=== PATIENT | female | born 1975 | race Caucasian/White ===

== ENCOUNTER 2017-09-14 08:33 | Outpatient (CLI) | payer OTHER | END 2017-09-14 08:34 | disposition home or self-care (01) | LOC: BICMRI 08:33 | PROVIDERS: ATTEND Surgery | DX: C50.919 Malignant neoplasm of unspecified site of unspecified female breast (principal) | CPT/HCPCS: C8908 ==

== ENCOUNTER 2017-09-27 13:25 | Outpatient (CLI) | payer OTHER ==
[2017-09-27 13:59] LABS: #Basophils 0.1 thou/uL (0.0-0.2); #Eosinphils 0.1 thou/uL (0.0-0.7); #Lymphocytes 2.9 thou/uL (1.20-3.40); #Monocytes 0.4 thou/uL (0.11-0.59); #Neutrophils 3.9 thou/uL (1.40-6.50); %Basophils 1.2 % (0.0-1.0); %Eosinophils 1.5 % (0.0-10.0); %Lymphocytes 38.9 % (21.0-51.0); %Neutrophils 53.4 % (42.0-75.0); Hemoglobin 14.7 g/dL (12.0-16.0); Mean Corpuscular HGB CONC 34.7 g/dL (32.0-36.0); Mean Corpuscular Hemoglobin 32.7 pg (27.0-31.0); Mean Corpuscular Volume 94.3 fL (78.0-98.0); Mean Platelet Volume 5.9 fL (7.4-10.4); Platelet Count 311 thou/uL (130-400); RBC Distribution Width 12.5 % (11.5-14.5); Red Blood Cell (RBC) Count 4.51 mill/uL (4.20-5.40); White Blood Cell (WBC) Count 7.3 thou/uL (4.8-10.8)
[2017-09-27 14:23] LABS: BHCG - Serum Negative (NEGATIVE); Pregs Control Background? CLEAR/WHITE (CLR/WHITE); Pregs Control Bar Appear? YES (CONTROL BAR)
[2017-09-27 14:32] LABS: Anion Gap 18 mmol/L (10-20); Calcium 9.7 mg/dL (7.8-10.44); Carbon Dioxide 17 mmol/L (22-29); Chloride 105 mmol/L (98-107); Potassium 4.5 mmol/L (3.5-5.1); Sodium 135 mmol/L (136-145)
[2017-09-27 14:41] LABS: BUN (Urea Nitrogen) 11 mg/dL (7.0-18.7); Calc. Creatinine Clearance 0 mL/min (70-130); Estimated GFR-MDRD 85; Glucose 84 mg/dL (70-105)
== END 2017-09-27 13:26 | disposition home or self-care (01) ==
LOC: LABBT 13:25
PROVIDERS: ATTEND Surgery
DX: Z01.812 Encounter for preprocedural laboratory examination (principal); C50.919 Malignant neoplasm of unspecified site of unspecified female breast
CPT/HCPCS: 80048; 84703; 85025

== ENCOUNTER 2017-09-28 07:49 | Day surgery (SDC) | payer OTHER ==
[2017-09-27 13:56] VITALS: BMI 25.7
[2017-09-28] MEDS ORDERED: Fentanyl 100 MCG/2 ML VIAL ONE ×2 (11:20→11:27)
[2017-09-28] MEDS ORDERED: Midazolam HCl 2 mg/2 ml Vial ONE ×2 (11:20→11:41)
--- NOTE | 2017-09-28 11:36 | NM ---
NUCLEAR MEDICINE LYMPHOSCINTIGRAPHY: Date: 09/28/17 HISTORY: Malignant neoplasm of unspecified site of female breast. COMPARISON: None. FINDINGS: The left breast was injected with a total of 0.415 mCi technetium-99m sulfur colloid in four differen t aliquots around the areola. There is uptake in the left axilla. IMPRESSION: Left axillary lymph node uptake. POS: NICOLE
[2017-09-28] MEDS ORDERED: Isosulfan Blue 50 MG/5 ML VIAL ONE (11:41)
[2017-09-28] MEDS ORDERED: Bupivacaine/Epinephrine 0.25% 30 ML VIAL ONE ×2 (11:41→13:28)
[2017-09-28] MEDS ORDERED: CEFAZOLIN/Water 2 GM/20 ML SYRINGE ONE (11:49)
[2017-09-28] MEDS ORDERED: PROPOFOL 200 MG/20 ML VIAL ONE (13:55)
[2017-09-28] MEDS ORDERED: Ondansetron HCl/PF 4 MG/2 ML Vial ONE (13:55)
[2017-09-28] MEDS ORDERED: Ketorolac Tromethamine 30 MG/ML VIAL ONE (13:55)
[2017-09-28] MEDS ORDERED: Dexamethasone 20 MG/5 ML VIAL ONE (13:55)
[2017-09-28] MEDS ORDERED: Lidocaine 1% PF 5 ML VIAL ONE (13:55)
--- NOTE | 2017-09-28 14:12 | MMO ---
MAMMOGRAM SPECIMEN: Date: 09/28/17 HISTORY: Lumpectomy. COMPARISON: Needle localization. FINDINGS: Specimen contains needle, clip, and mass. IMPRESSION: Specimen contains needle, clip, and mass. POS: LANETTE
--- NOTE | 2017-09-29 18:40 | PDOC.OP ---
Operative Note - Operative Note Operative Note: PROCEDURE: Left breast needle localized lumpectomy and sentinel lymph node biopsy DATE OF PROCEDURE: 09/28/2017 SURGEON: Gurinder Parham M.D. PREOPERATIVE DIAGNOSES: Left lobular breast cancer POSTOPERATIVE DIAGNOSIS: Left lobular breast cancer HISTORY: Patient is diagnosed with breast cancer. She has decided to undergo breast conservation therapy. [place] lymph node biopsy was recommended for staging. PROCEDURE IN DETAIL: The patient underwent lymphoscintigraphy and needle localization of the leftbreast mass in radiology prior to being taken to the operating room. She was then taken to the operating room and placed in supine position and anesthesia was administered. Appropriate preoperative antibiotics were administered and lymphazurin was injected behind the areola and the breast was massaged for several minutes taking care not to displace or disturb the needle localization wire. She was then prepped and draped in the standard sterile fashion and local anesthesia infused the skin and subcutaneous tissues of the axilla. An incision was made over the lower edge of the hair-bearing skin of the axilla and dissection carried down to the area of highest activity. Some blue lymphatics were seen feeding a small lymph node in this area which is morphologically normal. The lymphatics were clipped and the lymph node resected. A target count of 83 was obtained and the specimen was sent as sentinel lymph node #1. A thorough search of the axilla was undertaken and no other lymph nodes with elevated counts were encountered, nor were any palpable lymph nodes felt on examination. The axillary wound was irrigated and examined for hemostasis which was excellent. Additional local anesthesia was infused circumferentially for postoperative pain management and the subcutaneous tissues were closed with 3-0 Monocryl suture and the skin closed with 4-0 subcuticular Monocryl suture. Attention was then turned to the needle localized lumpectomy. Local anesthesia was infused the skin and subcutaneous tissues at the needle localization site. An incision was made and flaps raised through the subcutaneous tissues. The breast tissue surrounding the needle was then excised maintaining a distance of about 2-3 cm from the localization needle in all directions, with a slightly wider margin anteriorly based on the location of the needle on preoperative mammography . Dissection was carried out to the end of the wire and the specimen removed and oriented for pathology with a long lateral, short superior , and looped superficial/nterior suture. This was sent for a specimen mammogram which revealed that the mass, clip, and calcifications were in the specimen. The wound was irrigated and hemostasis obtained with Bovie electrocautery. Additional local anesthesia was infused for postoperative pain management and the subcutaneous tissues were reapproximated with 3-0 Monocryl sutures. Additional local anesthesia was infused into the biopsy cavity and the skin was closed with 4-0 subcuticular Monocryl sutures. Dermabond was placed to both incisions. Estimated blood loss minimal. There were no complications. SPECIMENS: Left sentinel lymph node and left breast mass.
== END 2017-09-28 16:10 | disposition home or self-care (01) ==
LOC: SDC 07:49
PROVIDERS: ATTEND Surgery
PROC: 0HBU0ZX Excision of Left Breast, Open Approach, Diagnostic (ICD-10-PCS; principal; 2017-09-28)
DX: C50.912 Malignant neoplasm of unspecified site of left female breast (principal); Z79.899 Other long term (current) drug therapy
CPT/HCPCS: 19281; 76098; 78195; 88307; 88331; 88334; 88342; A9541; J1100; J1885; J2001; J2250; J2405; J2704; J3010; Q9968

== ENCOUNTER 2018-07-03 09:12 | Outpatient (CLI) | payer OTHER ==
--- NOTE | 2018-07-03 10:00 | MMO ---
Bilateral MAMMO Bilat Diag [facility]. CLINICAL HISTORY: Patient is 43 years old and is seen for diagnostic exam. The patient has the following family history of breast cancer: maternal grandmother and paternal grandmother. The patient has a history of malignant (generic) in the left breast in July,. The patient has a history of left Stereotatic Biopsy in July, - malignant and left Lumpectomy in 2018 - malignant. VIEWS: The views performed were: bilateral craniocaudal with tomosynthesis; bilateral mediolateral oblique with tomosynthesis; and bilateral mediolateral. FILMS COMPARED: The present examination has been compared to prior imaging studies performed at MAMMOGRAM FINDINGS: There are scattered fibroglandular densities. There are new post operative changes seen in the left breast. There are no suspicious masses, suspicious calcifications, or new areas of architectural distortion. IMPRESSION: THERE IS NO MAMMOGRAPHIC EVIDENCE OF MALIGNANCY. A ROUTINE FOLLOW-UP MAMMOGRAM IN 1 YEAR IS RECOMMENDED. THE RESULTS OF THIS EXAM WERE SENT TO THE PATIENT. ACR BI-RADS Category 2 - Benign finding MAMMOGRAPHY NOTE: 1. A negative mammogram report should not delay a biopsy if a dominant of clinically suspicious mass is present. 2. Approximately 10% to 15% of breast cancers are not detected by mammography. 3. Adenosis and dense breasts may obscure an underlying neoplasm.
== END 2018-07-03 09:13 | disposition home or self-care (01) ==
LOC: BICMAMMO 09:12
PROVIDERS: ATTEND Surgery
DX: C50.919 Malignant neoplasm of unspecified site of unspecified female breast (principal)
CPT/HCPCS: 77066; G0279

== ENCOUNTER 2018-11-08 15:49 | Outpatient (CLI) | payer OTHER ==
--- NOTE | 2018-11-09 08:03 | MRI ---
MRI Upper Ext Jt Rt WO Con History: Right hand weakness. R 29.898 Comparison: Hand radiograph October 31, 2018 Findings: Tendons: There is abnormal increased fluid surrounding the extensor digiti minimi and exten sor tendons of the small finger. Partial tear of the extensor expansion at the small finger metacarpal phalangeal joint as well as the medial sagittal band. The flexor digitorum superficialis of the small finger is very thin and attenuated at the level of th e metacarpal base extending into the proximal phalanx without definite normal distal insertion. Flexor digitorum profundus is intact. High-grade edema surrounding the flexor tendon sheath throughou t the small finger. No annular nadiya tear is appreciated There is a partial tear of the fourth dorsal interosseous muscle and third palmar interosseous muscle . The wrist is intact. Partial tear of the abductor digiti minimi myotendinous junction at its insertio n. Impression: 1. Split tear of the small finger extensor expansion at the metacarpal phalangeal joint with medial s agittal band tear subtle lateral subluxation of the extensor tendon. 2. High-grade tear small finger flexor digitorum superficialis from the wrist to the insertion which may be torn and retracted. This evaluation is limited due to the large field of view images. 3. Partial tear of the abductor digit minimi myotendinous junction. 4. Partial tears of the fourth dorsal interosseous muscle and third palmar interosseous muscle. 5. Full-thickness tear medial collateral ligament small finger metacarpal phalangeal joint.
== END 2018-11-08 15:50 | disposition home or self-care (01) ==
LOC: SCSMRI 15:49
PROVIDERS: ATTEND Pediatrics Sports Medicine
DX: M79.641 Pain in right hand (principal); R29.898 Other symptoms and signs involving the musculoskeletal system; M24.9 Joint derangement, unspecified; M25.641 Stiffness of right hand, not elsewhere classified; S66.311A Strain of extensor muscle, fascia and tendon of left index finger at wrist and hand level, initial encounter

== ENCOUNTER 2018-11-27 12:42 | Outpatient (CLI) | payer OTHER ==
[2018-11-27 13:53] LABS: #Lymphocytes 1.9 thou/uL (1.20-3.40); #Monocytes 0.2 thou/uL (0.11-0.59); #Neutrophils 3.2 thou/uL (1.40-6.50); %Basophils 0.8 % (0.0-1.0); %Eosinophils 0.8 % (0.0-10.0); %Lymphocytes 35.5 % (21.0-51.0); %Monocytes 4.4 % (0.0-10.0); %Neutrophils 58.5 % (42.0-75.0); Hemoglobin 12.4 g/dL (12.0-16.0); Mean Corpuscular HGB CONC 33.5 g/dL (32.0-36.0); Mean Corpuscular Hemoglobin 31.8 pg (27.0-31.0); Mean Corpuscular Volume 94.8 fL (78.0-98.0); Mean Platelet Volume 7.2 fL (7.4-10.4); Platelet Count 274 thou/uL (130-400); RBC Distribution Width 11.6 % (11.5-14.5); Red Blood Cell (RBC) Count 3.88 mill/uL (4.20-5.40); White Blood Cell (WBC) Count 5.4 thou/uL (4.8-10.8)
[2018-11-27 14:17] LABS: BHCG - Serum Negative (NEGATIVE); Pregs Control Background? CLEAR/WHITE (CLR/WHITE); Pregs Control Bar Appear? YES (CONTROL BAR)
== END 2018-11-27 12:43 | disposition home or self-care (01) ==
LOC: LABBT 12:42
PROVIDERS: ATTEND Orthopaedic Surgery Hand Surgery
DX: Z01.812 Encounter for preprocedural laboratory examination (principal); S56.417A Strain of extensor muscle, fascia and tendon of right little finger at forearm level, initial encounter
CPT/HCPCS: 84703; 85025

== ENCOUNTER 2018-12-01 08:01 | Day surgery (SDC) | payer OTHER ==
[2018-11-27 12:27] VITALS: BMI 25.0
[2018-12-01] MEDS ORDERED: Fentanyl 100 MCG/2 ML VIAL ONE ×2 (08:33→11:07)
[2018-12-01] MEDS ORDERED: Midazolam HCl 2 mg/2 ml Vial ONE (08:33)
[2018-12-01] MEDS ORDERED: Bupivacaine HCl 0.5%/Epinephrine 1:200,000/PF 30 ml Vial ONE (10:49)
[2018-12-01] MEDS ORDERED: Bupivacaine PF 0.5% 30 ML VIAL ONE (11:05)
[2018-12-01] MEDS ORDERED: Sodium Chloride 0.9% 10 ML ONE (11:06)
[2018-12-01] MEDS ORDERED: Bacitracin Zinc Ointment 30 gm TUBE ONE (11:08)
[2018-12-01] MEDS ORDERED: Betamet Acet/Betamet Na Ph 30 MG/5 ML VIAL ONE (11:08)
[2018-12-01] MEDS ORDERED: Ondansetron PF 4 MG/2 ML Vial ONE (11:12)
[2018-12-01] MEDS ORDERED: Metoclopramide HCl 10 MG/2 ML VIAL ONE (11:12)
[2018-12-01] MEDS ORDERED: PROPOFOL 200 MG/20 ML VIAL ONE (11:12)
[2018-12-01] MEDS ORDERED: Dexamethasone 20 MG/5 ML VIAL ONE (11:12)
[2018-12-01] MEDS ORDERED: Lidocaine 1% PF 5 ML VIAL ONE (11:12)
[2018-12-01] MEDS ORDERED: ePHEDrine 50 MG/ML VIAL ONE (11:12)
[2018-12-01] MEDS ORDERED: Ketorolac Tromethamine 30 MG/ML VIAL ONE (13:14)
--- NOTE | 2018-12-04 12:01 | OP ---
DATE OF PROCEDURE: 12/01/2018 PREOPERATIVE DIAGNOSES: 1. Right small finger extensor tendon subluxation of MP joint with possible collateral ligament tear. 2. Right ring finger metacarpophalangeal joint contracture. FINDINGS: 1. Right ring finger metacarpophlangeal contracture with intrinsic tightness. 2. Right small finger dorsal capsular tightness, poor flexion, extensor tendon subluxation ulnarly with partial rupture of the retinaculum and over 60% tear at the base of P1, radial side, medial collateral ligament rupture. PROCEDURE PERFORMED: 1. Right ring finger: a. Metacarpophalangeal joint arthrotomy. b. Metacarpophalangeal joint capsulotomy. c. Radial intrinsic release. d. Ulnar intrinsic release. 2. Right small finger: a. Capsulectomy with capsulotomy of metacarpophalangeal joint. b. Ulnar retinacular release. c. Radial retinaculum repair. d. Medial collateral ligament/radial collateral ligament reconstruction back to bone. e. Extensor tendon centralization. TOURNIQUET TIME: 43 minutes. ESTIMATED BLOOD LOSS: Less than 10 mL. FINDINGS: Tight dorsal capsule in both the joints and moderate subluxation of extensor tendons at the small finger MCP joint with 60% small finger metacarpophalangeal joint medial collateral/radial collateral ligament rupture of the base of P1 just under retinacular tear. DESCRIPTION OF PROCEDURE: After successful general endotracheal anesthesia, the limb was prepped and draped. A zigzag incision was made slightly radial to the small finger to be able to reach the ring finger capsule as well. We then noticed even with a block and anesthesia that could not passively flex the MP joints beyond 50 degrees. Therefore capsule was very tight. ring finger, so we elevated the retinaculum, but spared on the ring finger, made a complete arthrotomy from one collateral to the other, took out 1.5 mm area of capsule and then flexed the joint easily to 110 degrees with no spring back. We then noticed the retinaculum had a tear that was oblique, approximately 1 cm long that had not healed. We then noticed that the retinaculum was intact at the ring finger. It was, however, very tight intrinsic, so we performed a triangular shape 1 cm along at its base radial and ulnar intrinsic release. We then turned our attention to the small finger. It was here that we saw the radial retinacular tear almost 1 cm long oblique and then dissected through this as part of inspection, we saw the medial collateral ligament tear deep to this. There was still a very tight dorsal capsule. We elevated the retinaculum, performed an arthrotomy from the ulnar collateral ligament all the way to the radial collateral ligament, resected 1.5 mm of dorsal capsule and now easily could flex to 110 degrees small finger with no spring back. Doing this, there was mild subluxation ulnarly of the extensor mechanism, so we released all the extensor mechanism 50%, this allowed us enough laxity to then repair the retinaculum. Before we repaired the retinaculum, however, we turned attention to the collateral ligament on the radial side rupture, freshened up the bone underneath this, made a trough 2 mm deep x 7 mm long, placed the anchor in the superior portion of this, and then, a Mitek mini anchor, used this with deviation towards the defect to repair/reconstruct it back to bone well in this trough. It was stable and so we then repaired the retinaculum on the radial side using a [id number] alternating 4-0 Prolene sutures. They were interrupted. Now, we could flex both joint to 80 degrees, MP joint, PIP and neutral. We released the tourniquet and closed the incision with interrupted 4-0 nylon mattress pattern. Bulky dressing applied and the small finger, ring finger, long finger were splinted with position of intrinsic plus, the MP joints at 90, PIP joints at 10. The patient left the operating room without evidence of anesthetic or operative complication. Job ID: [id number]
== END 2018-12-01 14:55 | disposition home or self-care (01) ==
LOC: SDC 08:01 → EEVIPCON 13:15 → SDC 14:55
PROVIDERS: ATTEND Orthopaedic Surgery Hand Surgery
PROC: 0RNU0ZZ Release Right Metacarpophalangeal Joint, Open Approach (ICD-10-PCS; principal; 2018-12-01)
PROC: 0LU Tendons, Supplement (ICD-10-PCS; principal; 2018-12-01)
PROC: 3E0T3BZ Introduction of Anesthetic Agent into Peripheral Nerves and Plexi, Percutaneous Approach (ICD-10-PCS; principal; 2018-12-01)
DX: S63.311A Traumatic rupture of collateral ligament of right wrist, initial encounter (principal); S63.091A Other subluxation of right wrist and hand, initial encounter; M24.541 Contracture, right hand; G89.18 Other acute postprocedural pain
CPT/HCPCS: C1713; J0670; J0690; J0702; J1100; J1885; J2001; J2250; J2405; J2704; J2765; J3010; J3490; S0020

== ENCOUNTER 2019-07-05 09:07 | Outpatient (CLI) | payer OTHER ==
--- NOTE | 2019-07-05 09:28 | MMO ---
Bilateral MAMMO Bilat Diag [facility]. CLINICAL HISTORY: Patient is 44 years old and is seen for diagnostic exam. The patient has the following family history of breast cancer: maternal grandmother and paternal grandmother. The patient has a history of malignant (generic) in the left breast in July,. The patient has a history of left Stereotatic Biopsy in July, - malignant and left Lumpectomy in 2018 - malignant. VIEWS: The views performed were: bilateral craniocaudal with tomosynthesis; bilateral mediolateral oblique with tomosynthesis; and bilateral mediolateral with tomosynthesis. FILMS COMPARED: The present examination has been compared to prior imaging studies performed at on 07/03/2018. This study has been interpreted with the assistance of computer-aided detection. MAMMOGRAM FINDINGS: There are scattered fibroglandular densities. There are stable post-operative changes in the left breast.. There are no suspicious masses, suspicious calcifications, or new areas of architectural distortion. IMPRESSION: THERE IS NO MAMMOGRAPHIC EVIDENCE OF MALIGNANCY. A ROUTINE FOLLOW-UP MAMMOGRAM IN 1 YEAR IS RECOMMENDED. THE RESULTS OF THIS EXAM WERE SENT TO THE PATIENT. ACR BI-RADS Category 2 - Benign finding MAMMOGRAPHY NOTE: 1. A negative mammogram report should not delay a biopsy if a dominant of clinically suspicious mass is present. 2. Approximately 10% to 15% of breast cancers are not detected by mammography. 3. Adenosis and dense breasts may obscure an underlying neoplasm. Reported by: OSMAR POWELL MD Electonically Signed: [id number]
== END 2019-07-05 09:08 | disposition home or self-care (01) ==
LOC: BICMAMMO 09:07
PROVIDERS: ATTEND Surgery
DX: Z08 Encounter for follow-up examination after completed treatment for malignant neoplasm (principal); Z85.3 Personal history of malignant neoplasm of breast
CPT/HCPCS: 77066; G0279

== ENCOUNTER 2020-06-30 09:21 | Outpatient (CLI) | payer BC | END 2020-06-30 09:22 | disposition home or self-care (01) | LOC: BICMAMMO 09:21 | PROVIDERS: ATTEND Surgery | DX: Z08 Encounter for follow-up examination after completed treatment for malignant neoplasm (principal); Z85.3 Personal history of malignant neoplasm of breast | CPT/HCPCS: 77066; G0279 ==

== ENCOUNTER 2021-07-15 09:14 | Outpatient (CLI) | payer BC | END 2021-07-15 09:15 | disposition home or self-care (01) | LOC: BICMAMMO 09:14 | PROVIDERS: ATTEND Surgery | DX: Z08 Encounter for follow-up examination after completed treatment for malignant neoplasm (principal); Z85.3 Personal history of malignant neoplasm of breast | CPT/HCPCS: 77066; G0279 ==

== ENCOUNTER 2022-11-05 08:48 | Outpatient (CLI) | payer BC | END 2022-11-05 08:49 | disposition home or self-care (01) | LOC: BICMAMMO 08:48 | PROVIDERS: ATTEND Internal Medicine Hematology & Oncology | DX: Z08 Encounter for follow-up examination after completed treatment for malignant neoplasm (principal); Z85.3 Personal history of malignant neoplasm of breast | CPT/HCPCS: 77066; G0279 ==